=== PATIENT | female | born 1975 | race Caucasian/White ===

== ENCOUNTER 2020-12-04 07:22 | Emergency (ER) | payer SELFPAY ==
[2020-12-04 07:46] LABS: #Basophils 0.1 thou/uL (0.0-0.2); #Lymphocytes 1.7 thou/uL (1.20-3.40); #Monocytes 0.5 thou/uL (0.11-0.59); #Neutrophils 5.2 thou/uL (1.40-6.50); %Eosinophils 0.2 % (0.0-10.0); %Neutrophils 69.8 % (42.0-75.0); Hemoglobin 11.7 g/dL (12.0-16.0); Mean Corpuscular HGB CONC 31.4 g/dL (32.0-36.0); Mean Corpuscular Hemoglobin 30.4 pg (27.0-31.0); Mean Corpuscular Volume 96.9 fL (78.0-98.0); Mean Platelet Volume 10.6 fL (7.4-10.4); Platelet Count 241 thou/uL (130-400); RBC Distribution Width 12.3 % (11.5-14.5); Red Blood Cell (RBC) Count 3.84 mill/uL (4.20-5.40); White Blood Cell (WBC) Count 7.5 thou/uL (4.8-10.8)
[2020-12-04 07:48] LABS: Bilirubin Negative (Negative); Blood, Urine Negative (Negative); Clarity Clear (Clear); Glucose, Urine (Dipstick) Negative (Negative); Ketone, Urine 40 mg/dL (Negative); Leukocyte Negative (Negative); Nitrite Negative (Negative); Protein, Urine (Dipstick) Negative (Neg-Trace); Urobilinogen 0.2 mg/dL (Less than 2); pH, Urine 6.5 (5.0-9.0)
[2020-12-04 07:49] LABS: Specific Gravity, Urine 1.024 (1.002-1.036)
[2020-12-04 07:53] LABS: Pregnancy Test - Urine (BHCG) Negative (Negative); Pregu Control Background? CLEAR/WHITE (CLR/WHITE); Pregu Control Bar Appear? YES (CONTROL BAR); Specific Gravity 1.024 (1.002-1.036)
--- NOTE | 2020-12-04 07:59 | CT ---
CT HEAD WITHOUT IV CONTRAST COMPARISON: None HISTORY: Altered mental status. TECHNIQUE: Axial CT imaging at 5 mm intervals from vertex through skull base without contrast FINDINGS: Low-attenuation areas within the left cerebellar hemisphere may be related to dural venous sinuses, b ut remote infarctions left cerebellar hemisphere are difficult to entirely exclude. There is no evidence of an acute infarction, hemorrhage, mass effect, or midline shift. The ventricular system is normal in size, shape, and position. Skull base has a normal CT appearance. Visualized paranasal sinuses are clear. Osseous structures appear intact.Incomplete visualization postoperative changes posterior cervical sp ine. IMPRESSION: 1. No acute intracranial abnormality demonstrated.
--- NOTE | 2020-12-04 07:59 | RAD ---
EXAM: CHEST ONE VIEW HISTORY: Altered mental status. COMPARISON: None FINDINGS: The cardiac silhouette and pulmonary vasculature are within normal limits. The lungs are clear. The o sseous structures are intact. IMPRESSION: No acute cardiopulmonary process.
[2020-12-04 08:02] LABS: Amphetamine Detected (NotDetected); Barbiturates Screen Not Detected (NotDetected); Benzodiazepine Screen Not Detected (NotDetected); Cocaine Metabolite Screen Not Detected (NotDetected); Medtox Control Line Valid? VALID (VALID); Methadone Not Detected (NotDetected); Methamphetamine Detected (NotDetected); Opiate Screen Not Detected (NotDetected); Oxycodone Screen Not Detected (NotDetected); Phencyclidine (PCP) Not Detected (NotDetected); THC/Cannabinoid Screen Not Detected (NotDetected); Tricyclic Screen Not Detected (NotDetected)
[2020-12-04 08:08] LABS: ALT (SGPT) 12 U/L (8-55); AST (SGOT) 14 U/L (5-34); Acetaminophen Less than 6.0 mcg/mL (10.0-30.0); Alcohol Less than 10 mg/dL (Less than 10); Alkaline Phosphatase 61 U/L (40-110); Anion Gap 14 mmol/L (10-20); BUN (Urea Nitrogen) 14 mg/dL (7.0-18.7); Bilirubin, Total 0.7 mg/dL (0.2-1.2); Calc. Creatinine Clearance 0 mL/min (70-130); Calcium 8.8 mg/dL (7.8-10.44); Carbon Dioxide 24 mmol/L (22-29); Chloride 103 mmol/L (98-107); Globulin 2.7 g/dL (2.4-3.5); Glucose 96 mg/dL (70-105); Magnesium 1.9 mg/dL (1.6-2.6); Potassium 3.9 mmol/L (3.5-5.1); Protein, Total 6.7 g/dL (6.0-8.3); Salicylate Less than 8.0 mg/dL (15.0-30.0); Sodium 137 mmol/L (136-145)
--- NOTE | 2020-12-04 12:32 | CT ---
EXAM: CT angiogram head and neck with IV contrast and 3-D reconstructions PROVIDED CLINICAL HISTORY: Altered mental status COMPARISON: None FINDINGS: There is a common origin of the innominate and left common carotid artery each of which appears paten t. Right subclavian artery is patent. Portions of the left subclavian artery are obscured due to artifact from dense adjacent venous contrast. Bilateral common carotid arteries as well as bilateral internal carotid arteries are patent. Bilateral vertebral arteries are patent. Left vertebral artery is dominant. The basilar artery and po sterior cerebral arteries are patent. Bilateral anterior cerebral and middle cerebral arteries are patent without focal stenosis or branch occlusion. No intracranial aneurysm is seen. Dependent atelectasis is seen in the upper lung zones. Degenerative changes are seen involving the cervical spine. Postoperative changes related to anterior cervical fusion C2-3 level are present. Cerclage wires are seen posteriorly at this level. IMPRESSION: 1. Patent bilateral internal carotid arteries. 2. No focal stenosis or occlusion is seen involving the [place] of [place] or vertebrobasilar system.
== END 2020-12-04 13:28 | disposition short-term general hospital (02) ==
LOC: EDBD → BURERS 07:22
DX: R41.82 Altered mental status, unspecified (principal)
CPT/HCPCS: 36415; 70450; 70496; 71045; 80053; 80306; 80307; 81003; 81025; 82140; 82550; 83605; 83690; 83735; 84443; 84484; 85025; 93005; 94760